=== PATIENT | male | born 1975 | race Caucasian/White ===

== ENCOUNTER 2016-12-09 06:54 | Observation (INO) | payer OTHER ==
[2016-12-03 17:20] LABS: BASOPHILS 0.2 %; BASOPHILS ABSOLUTE 0.02 10/3/uL (0.0-0.16); EOSINOPHILS 0.6 %; EOSINOPHILS ABSOLUTE 0.07 10/3/uL (0.0-0.53); HEMATOCRIT 42.2 % (40.0-51.0); HEMOGLOBIN 14.5 g/dL (13.6-17.8); IMMATURE GRANULOCYTES 0.2 %; IMMATURE GRANULOCYTES ABSOLUTE 0.02 10/3/uL (0.0-0.11); LYMPHOCYTES 24.8 %; LYMPHOCYTES ABSOLUTE 2.88 10/3/uL (0.67-4.30); MEAN CORPUS HGB CONC 34.4 g/dL (32.0-36.0); MEAN CORPUSCULAR HEMOGLOB 30.5 pg (26.0-34.0); MEAN CORPUSCULAR VOLUME 88.7 fL (80-100); MEAN PLATELET VOLUME 9.3 fL (9.2-13.0); MONOCYTES ABSOLUTE 1.39 10/3/uL (0.21-1.20); NEUTROPHILS 62.2 %; NEUTROPHILS ABSOLUTE 7.22 10/3/uL (2.02-8.40); PLATELET COUNT 381 10/3/uL (150-400); RBC DISTRIBUTION WIDTH 12.6 % (12.0-16.0); RED CELL COUNT 4.76 10/6/uL (4.7-6.1); WHITE BLOOD CELLS 11.6 10/3/uL (4.5-10.5)
[2016-12-03 17:22] LABS: MANUAL DIFF NO %
[2016-12-03 17:39] LABS: BUN (BLOOD UREA NITROGEN) 21 MG/DL (6-23); CALCIUM, SERUM 9.3 MG/DL (8.5-10.4); CHLORIDE, SERUM 109 MMOL/L (96-112); CO2 (CARBON DIOXIDE) 24 MMOL/L (24-34); CREATININE 0.83 MG/DL (0.70-1.30); GFR AFRICAN AMERICAN 127 ML/MIN (>=60); GFR NON AFRICAN AMERICAN 109 ML/MIN (>=60); GLUCOSE, SERUM 90 MG/DL (60-99); POTASSIUM, SERUM 4.2 MMOL/L (3.5-5.3); SODIUM, SERUM 142 MMOL/L (135-148)
--- NOTE | ~2016-12-09 | OP ---
Record Of Operation [facility] [address] [place]. [address] NAME: TENZIN MCKEON : 73 STATUS : ADM [place] PAT#: [id number] AGE: 40 ADM/REG DATE : 12/09/16 MR#: [id number] REPORT SERV DATE: 12/09/16 DICTATED BY: BENJAMIN KC DATE: 12/09/16 REPORT STATUS : Draft TRANSCRIBED BY: MODWilbert DATE: 12/09/16 DATE OF PROCEDURE: 12/09/2016 PROCEDURE: 1. Excision of thyroglossal duct cyst. 2. Septoplasty. 3. UPPP. 4. Bilateral inferior turbinate reduction. PREOPERATIVE DIAGNOSES: 1. Thyroglossal duct cyst. 2. Septal deviation. 3. Turbinate hypertrophy. 4. Obstructive sleep apnea. POSTOPERATIVE DIAGNOSES: 1. Thyroglossal duct cyst. 2. Septal deviation. 3. Turbinate hypertrophy. 4. Obstructive sleep apnea. ANESTHESIA: General endotracheal. COMPLICATION: None. FINDINGS: The patient was taken the OR and placed in supine position. He then was anesthetized, prepped and draped in standard fashion. The cervical area was injected with 1% Xylocaine with epinephrine. An incision was made just inferior to the border of the neck mass. This was carried through the platysma. Subplatysmal plane was raised to the inferior border of the mass and then superiorly. Dissection proceeded at the inferior extent of the mass with a combination of sharp dissection and bipolar electrocautery and monopolar electrocautery. The cyst was from the surrounding tissue and followed to the hyoid bone. The hyoid bone then was skeletonized and incised with bone snips. The cyst in the central portion of the hyoid then was followed superiorly. The track was noted to go into the base of tongue. This was removed with a small base of tongue and cross-clamped. A 2-0 silk tie was placed. The wound was copiously irrigated. There was no evidence of unusual bleeding. No evidence of entrance into the airway or vallecula. Two pieces of Surgicel were placed on the cut edges of the hyoid bone. Surgifoam placed. Platysma was reapproximated with 3-0 chromic suture. 4-0 Monocryl was used for subcuticular closure. Steri-Strips were placed. The patient was repositioned. Nose vasoconstricted and anesthetized with 1% Xylocaine with epinephrine as injection as well as Ramon-Synephrine topically placed on cottonoids. McIvor mouth gag was inserted and red rubber catheter was used to elevate the soft palate. No appreciable adenoid tissue was present. The uvula was grasped. An incision was made at the border of the transverse fibers. This was carried in a beveled direction superiorly to inferiorly and anteriorly to posteriorly. The uvula and adjacent soft palate removed. Base of the uvula was further reduced with a Coblator. Two Record Of Operation [facility] [address] [place]. [address] NAME: TENZIN MCKEON : 73 STATUS : ADM Trever PAT#: [id number] AGE: 40 ADM/REG DATE : 12/09/16 MR#: [id number] REPORT SERV DATE: 12/09/16 DICTATED BY: BENJAMIN KC DATE: 12/09/16 REPORT STATUS : Draft TRANSCRIBED BY: BRITTNEY DATE: 12/09/16 setback incisions were made on either side of the palate. The UPPP incision was then closed with interrupted 2-0 chromic suture. The patient was repositioned. A left hemitransfixion incision was made. Mucoperichondrial and mucoperiosteal flaps were elevated. Cartilaginous septum was dislocated from the bony septum. He had somewhat of a foreshortened cartilaginous septum and a very long vomer. The vomer was incised with Jennings scissors and removed with Jesse Lunsford forceps. The caudal cartilage was overriding the crest to the left. Inferior strip removed twice to allow the septum to sit in the midline. A greater than one piece of caudal cartilage was preserved. The patient had definitive weakness of the tip. Therefore, inner cartilaginous incision was made in the columella. A previously removed piece of cartilage was fashioned as a caudal strut graft. This was placed after a pocket was formed with tenotomy scissors. The incision then was closed with 5-0 chromic in an interrupted fashion. The hemitransfixion incision then was closed with 5-0 chromic. Caudal septum was mattressed with 5-0 plain gut suture. The endoscope was used. Turbinate blade was inserted along the head of the left inferior turbinate and advanced to the posterior tip. In a wave-like fashion, the stroma of the turbinate was removed from a posterior to anterior direction. The blade was turned medially to the head of the turbinate for more aggressive dissection. The turbinate then was outfractured multiply with a [place] elevator and then outfractured with a [place] elevator. Same procedure was performed on the opposite side with additional trimming of the inferior edge of the turbinate on the right side. The patient then was awakened, extubated, and taken to the recovery room in good condition. MAU/BRITTNEY Benjamin Kc M.D. / [id number] CC: Benjamin Kc M.D.
[~2016-12-09 06:54] MED LIST: ADDER10 PO; CRESTOR20 MG PO; ENDOCET1 TA3 PO; LEXAPRO10 PO; ULTRAM50 PO
[2016-12-10] MEDS ORDERED: HYCET 7.5 MG-3473 ML PO (09:03)
[2016-12-10] MEDS ORDERED: SIMPLY SALINE NAS (09:04)
== END 2016-12-10 10:10 | disposition home or self-care (01) ==
LOC: SDC 06:54 → SDC/OF 13:03 → 4SO 13:31
PROVIDERS: Otolaryngology
PROC: 0CBNXZZ Excision of Uvula, External Approach (ICD-10-PCS; 2016-12-09)
PROC: 09TL0ZZ Resection of Nasal Turbinate, Open Approach (ICD-10-PCS; 2016-12-09)
PROC: 0WB60ZZ Excision of Neck, Open Approach (ICD-10-PCS; principal; 2016-12-09 08:15)
PROC: 09QM0ZZ Repair Nasal Septum, Open Approach (ICD-10-PCS; 2016-12-09 08:15)
DX: J34.2 Deviated nasal septum (principal); E78.00 Pure hypercholesterolemia, unspecified; G47.33 Obstructive sleep apnea (adult) (pediatric); Q89.2 Congenital malformations of other endocrine glands; J34.3 Hypertrophy of nasal turbinates
CPT/HCPCS: 80048; 85025; 85730; 88300; 88304; 88305; 93005; A9270-GY; G0378; J0330; J0360; J0690; J1170; J2250; J2270; J2405; J2710; J3010